=== PATIENT | male | born 1980 | race Caucasian/White ===

== ENCOUNTER 2019-08-31 08:26 | Emergency (ER) | payer OTHER ==
[~2019-08-31] VITALS: Ht 182.9 cm; Wt 86.2 kg
--- NOTE | 2019-08-31 08:26 | NUR ---
Placed in room 3. Placed on payloader operator, blood pressure machine and pulse oximeter. To gown for exam. Side rails up.
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
--- NOTE | 2019-08-31 08:30 | NUR ---
PATIENT TO ER #3 WITH [employer] FILLING MACHINE OPERATOR, SAO2 AND ABP
[2019-08-31 08:31] VITALS: BP_SYST 172
--- NOTE | 2019-08-31 08:36 | NUR ---
ER Dr. Jimenez at bedside examining patient.
[2019-08-31 08:46] VITALS: BP_SYST 164
--- NOTE | 2019-08-31 08:46 | NUR ---
Patient given written and verbal discharge instructions and verbalizes understanding. ER MD discussed with patient the results and treatment provided. Patient in stable condition. ID arm band removed. Patient educated on pain management and to follow up with PMD. Pain Scale 0/10. Opportunity for questions provided and answered. Medication side effect fact sheet provided. Addendum: 08/31/19 at 0854 by JAKE Patient refused to sign discharge paperwork.
== END 2019-08-31 08:46 | disposition home or self-care (01) ==
LOC: SED 08:26
DX: F41.9 Anxiety disorder, unspecified (principal); F12.90 Cannabis use, unspecified, uncomplicated
CPT/HCPCS: 99283

== ENCOUNTER 2021-02-22 05:25 | Emergency (ER) | payer MEDICAID, OTHER ==
[~2021-02-22] VITALS: Ht 182.9 cm; Wt 106.6 kg
[2021-02-22 05:28] VITALS: BP_SYST 122
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
--- NOTE | 2021-02-22 05:34 | NUR ---
ER at bedside examining patient.
--- NOTE | 2021-02-22 05:49 | NUR ---
X-ray at bedside.
[2021-02-22] MEDS ORDERED: ACETAMINOPHEN 325 MG TABLET PO ONE (06:00)
[2021-02-22 06:14] VITALS: BP_SYST 122
--- NOTE | 2021-02-22 06:14 | NUR ---
Patient is medically cleared and D/C to [facility].
== END 2021-02-22 06:14 | disposition home or self-care (01) ==
LOC: SED 05:25
DX: S60.221A Contusion of right hand, initial encounter (principal); S80.02XA Contusion of left knee, initial encounter; V49.49XA Driver injured in collision with other motor vehicles in traffic accident, initial encounter; Y93.89 Activity, other specified; Y92.89 Other specified places as the place of occurrence of the external cause; Y99.8 Other external cause status
CPT/HCPCS: 73560-TC; 99284